=== PATIENT | female | born 1955 | race Caucasian/White ===

== ENCOUNTER → 2016-10-03 | Outpatient (CLI) | payer OTHER ==
--- NOTE | 2016-10-03 11:18 | DX ---
Abdomen Single View 10:13 a.m. Indication: Abdominal and flank pain. Comparison: None. Findings: Bowel pattern within normal limit. Stool within the colon partially obscures the kidneys. N o definite calculi overlying the kidneys or course of the ureters. Several round phleboliths are scat tered throughout the pelvis. 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 Impression: 1. No definite nephrolithiasis or ureteral calculi. 2. Mild constipation.
== END ==
LOC: BMCIMAGING 10:10
PROVIDERS: ATTEND Internal Medicine
DX: M54.5 Low back pain (principal); K59.00 Constipation, unspecified

== ENCOUNTER → 2016-10-10 | Outpatient (CLI) | payer OTHER | LOC: FIMAGING 07:26 | DX: Z12.31 Encounter for screening mammogram for malignant neoplasm of breast (principal) | CPT/HCPCS: G0202 ==

== ENCOUNTER → 2016-10-11 | Outpatient (CLI) | payer OTHER | LOC: BRMIMAGING 14:00 | PROVIDERS: ATTEND Internal Medicine | DX: R10.2 Pelvic and perineal pain (principal) | CPT/HCPCS: 76856-PO ==

== ENCOUNTER 2016-10-18 16:03 | Emergency (ER) | payer OTHER ==
[2016-10-18] MEDS ORDERED: NS 1,000 ML IV ONE (16:27)
--- NOTE | 2016-10-18 16:31 | CPEKG ---
Heart Rate: 77 RR Interval: 779 P-R Interval: 156 QRSD Interval: 74 QT Interval: 416 QTC Interval: 471 P [place]: 259 QRS [place]: 50 T Wave [place]: 14 EKG Severity - BORDERLINE ECG - EKG Impression: ECTOPIC ATRIAL RHYTHM Electronically Signed By: Pramod Cabrera 18-Oct-2016 23:45:26
[2016-10-18 16:32] LABS: % IMMATURE GRANULYOCYTES 0.3 % (0.0-1.1); ABSOLUTE IMMATURE GRANULOCYTES 0.03 10^3/uL (0.00-0.10); ADD DIFF? NO; ADD MORPH? NO; ADD SCAN? NO; ATYPICAL LYMPHOCYTE FLAG 0 (0-99); FRAGMENT RBC FLAG 0 (0-99); HEMATOCRIT 42.2 % (38.0-47.0); HEMOGLOBIN 14.2 g/dL (12.6-16.3); LEFT SHIFT FLG 0 (0-99); LIPEMIA HEMOLYSIS FLAG 80 (0-99); MEAN CELL HEMOGLOBIN 27.5 pg (27.9-34.1); MEAN CELL HEMOGLOBIN CONCENTR. 33.6 g/dL (32.4-36.7); MEAN CELL VOLUME 81.6 fL (81.5-99.8); MEAN PLATELET VOLUME 9.8 fL (8.7-11.7); PLATELET CLUMPS FLAG 0 (0-99); PLATELET COUNT 302 10^3/uL (150-400); RED BLOOD CELL COUNT 5.17 10^6/uL (4.18-5.33); RED CELL DISTRIBUTION WIDTH 13.5 % (11.5-15.2)
--- NOTE | 2016-10-18 16:42 | EDPHY ---
H & P Stated Complaint: bilat UQ abd pain Time Seen by Provider: 10/18/16 16:13 HPI/ROS: Chief complaint: Abdominal pain HPI: 7-year-old female presenting complaining of severe abdominal pain that started about an hour ago. Patient states she is currently being worked up evaluate for constipation. Patient states she has had constipation for the last month and had a last bowel movement was the 29 of September. This all started after she was diagnosed with a possible UTI and was taking antibiotics. Patient states she was seen by her primary care doc in October 09 was started on Colace into clocks daily. Patient called GI last week and was scheduled for a colonoscopy tomorrow. Yesterday she took 2 doses of MiraLax and drank a bottle of Mag citrate last night. She had 1 small loose stool last night and had 1 small loose stool this morning. She took 2 do clocks about 2 hours ago with a small glass of water. Shortly thereafter she developed this severe abdominal pain to a 10/10. Pain is now subsided to a 4/10. Diffuse in her abdomen. Has had some nausea no vomiting. No fevers or chills. Does not have a history of constipation in the past. States that she does not drink fluids very often or nearly as much as she should. ROS: 10 point Review of Systems is negative except as noted in the HPI. Past medical history: Vera's esophagus Surgical history: Appendectomy years ago Medications: None new Allergies: No known drug allergies Physical exam: Gen: Awake, Alert, No Distress HEENT: Nose: no rhinorrhea Eyes: PERRLA, EOMI Mouth: Moist mucosa Neck: Supple, no JVD Chest: nontender, lungs clear to auscultation Heart: S1, S2 normal, no murmur Abd: Soft, diffuse tenderness lower greater than upper with some mild distention in the lower abdomen, mild voluntary guarding Back: no CVA tenderness, no midline tenderness Ext: no edema, non-tender Skin: no rash Neuro: CN II-XII intact, Sensation grossly intact, Strength 5/5 in bilateral upper and lower extremities - Personal History Current Tetanus Diphtheria and Acellular Pertussis (TDAP): No - Medical/Surgical History Hx Asthma: No Hx Chronic Respiratory Disease: No Hx Diabetes: No Hx Cardiac Disease: No Hx Renal Disease: No Hx Cirrhosis: No Hx Alcoholism: No Hx HIV/AIDS: No Hx Splenectomy or Spleen Trauma: No Other PMH: vera's esophagus - Social History Smoking Status: Never smoked Constitutional: Initial Vital Signs Temperature (C) 36.4 C 10/18/16 16:09 Heart Rate 76 10/18/16 16:09 Respiratory Rate 20 10/18/16 16:09 Blood Pressure 146/88 H 10/18/16 16:09 O2 Sat (%) 100 10/18/16 16:09 O2 Delivery Mode Room Air Allergies/Adverse Reactions: No Known Allergies Allergy (Unverified 10/18/16 16:08) Home Medications: Medication Instructions Recorded Magnesium Citrate 10/18/16 Polyethylene Glycol 3350 [Miralax 10/18/16 17 gm (*)] Medical Decision Making - Diagnostics Imaging: CT scan abdomen pelvis interpreted by Dr. Soliz: No bowel obstruction. There is fluid in the small bowel and colon consistent with a bowel prep. There is no stool. There is no obstruction. There is some questionable abnormality in the colon which he is recommending follow up with a colonoscopy. ED Course/Re-evaluation: 7-year-old female presenting with abdominal pain after beginning a bowel prep a for constipation in reporting that she has not had a bowel movement since the 3rd of this month. CT scan shows fluid-filled bowel and no stool and no evidence of obstruction. Findings are consistent with her bowel prep. I discussed at length with her. There is some possible abnormality in the knee: Which is nonspecific. Follow up is recommended for colonoscopy. Plan will be to discharge the patient home to have her complete her bowel prep and follow-up for colonoscopy tomorrow as scheduled. - Data Points Laboratory Results: Laboratory Results 10/18/16 16:07 10/18/16 16:07 10/18/16 10/18/16 16:07 16:07 WBC 8.68 10^3/uL 10^3/uL (3.80-9.50) RBC 5.17 10^6/uL 10^6/uL (4.18-5.33) Hgb 14.2 g/dL g/dL (12.6-16.3) Hct 42.2 % % (38.0-47.0) MCV 81.6 fL fL (81.5-99.8) MCH 27.5 pg L pg (27.9-34.1) MCHC 33.6 g/dL g/dL (32.4-36.7) RDW 13.5 % % (11.5-15.2) Plt Count 302 10^3/uL 10^3/uL (150-400) MPV 9.8 fL fL (8.7-11.7) Neut % (Auto) 57.1 % % (39.3-74.2) Lymph % (Auto) 33.6 % % (15.0-45.0) [place] % (Auto) 7.3 % % (4.5-13.0) Eos % (Auto) 1.0 % % (0.6-7.6) Baso % (Auto) 0.7 % % (0.3-1.7) Nucleat RBC Rel Count 0.0 % % (0.0-0.2) Absolute Neuts (auto) 4.95 10^3/uL 10^3/uL (1.70-6.50) Absolute Lymphs (auto) 2.92 10^3/uL 10^3/uL (1.00-3.00) Absolute Monos (auto) 0.63 10^3/uL 10^3/uL (0.30-0.80) Absolute Eos (auto) 0.09 10^3/uL 10^3/uL (0.03-0.40) Absolute Basos (auto) 0.06 10^3/uL 10^3/uL (0.02-0.10) Absolute Nucleated RBC 0.00 10^3/uL 10^3/uL (0-0.01) Immature Gran % 0.3 % % (0.0-1.1) Immature Gran # 0.03 10^3/uL 10^3/uL (0.00-0.10) Sodium 137 mEq/L mEq/L (134-144) Potassium 3.7 mEq/L mEq/L (3.5-5.2) Chloride 103 mEq/L mEq/L (97-110) Carbon Dioxide 22 mEq/l mEq/l (22-31) Anion Gap 12 mEq/L mEq/L (8-16) BUN 19 mg/dL mg/dL (7-23) Creatinine 0.9 mg/dL mg/dL (0.6-1.0) Estimated GFR > 60 Glucose 108 mg/dL H mg/dL (70-100) Calcium 10.0 mg/dL mg/dL (8.5-10.4) Total Bilirubin 0.7 mg/dL mg/dL (0.1-1.4) Conjugated Bilirubin 0.3 mg/dL mg/dL (0.0-0.5) Unconjugated Bilirubin 0.4 mg/dL mg/dL (0.0-1.1) AST 30 IU/L IU/L (14-46) ALT 35 IU/L IU/L (9-52) Alkaline Phosphatase 70 IU/L IU/L (38-126) Total Protein 7.7 g/dL g/dL (6.3-8.2) Albumin 4.9 g/dL g/dL (3.5-5.0) Lipase 170.0 IU/L IU/L (23-300) Medications Given: Discontinued Medications Sodium Chloride (Ns) 1,000 mls @ 0 mls/hr IV ONCE ONE PRN Reason: Wide Open Stop: 10/18/16 16:28 Last Admin: 10/18/16 16:37 Dose: 1,000 mls Ondansetron HCl (Zofran) 4 mg IVP EDNOW ONE Stop: 10/18/16 18:07 Last Admin: 10/18/16 18:10 Dose: 4 mg Departure - Departure Disposition: Home, Routine, Self-Care Clinical Impression: Abdominal pain Condition: Good Instructions: Acute Abdominal Pain (ED) Additional Instructions: Follow up with Gastroenterology as scheduled tomorrow for a colonoscopy. Please complete your bowel prep this evening. Referrals: Jeff Palm MD [Primary Care Provider] - As per Instructions
[2016-10-18 16:59] LABS: ALANINE AMINOTRANSFERASE 35 IU/L (9-52); ALBUMIN 4.9 g/dL (3.5-5.0); ALKALINE PHOSPHATASE 70 IU/L (38-126); ANION GAP 12 mEq/L (8-16); ASPARTATE AMINOTRANSFERASE 30 IU/L (14-46); BILIRUBIN,TOTAL 0.7 mg/dL (0.1-1.4); BILIRUBIN-CONJUGATED 0.3 mg/dL (0.0-0.5); BILIRUBIN-UNCONJUGATED 0.4 mg/dL (0.0-1.1); CARBON DIOXIDE 22 mEq/l (22-31); CHLORIDE 103 mEq/L (97-110); CREATININE 0.9 mg/dL (0.6-1.0); GLOMERULAR FILTRATION RATE > 60; GLUCOSE 108 mg/dL (70-100); POTASSIUM 3.7 mEq/L (3.5-5.2); SODIUM 137 mEq/L (134-144); TOTAL PROTEIN 7.7 g/dL (6.3-8.2)
[2016-10-18] MEDS ORDERED: IOPAMIDOL (ISOVUE-300) 100 ML BTL IV ONE (17:36)
[2016-10-18] MEDS ORDERED: ONDANSETRON 4 MG/2 ML VIAL ONE (17:45)
[2016-10-18] MEDS ORDERED: ONDANSETRON 4 MG/2 ML VIAL IVP ONE (18:06)
[2016-10-18 19:04] VITALS: BP 164/104; PULSE 93; RESP 18; TEMP 97.7; O2SAT 96
== END 2016-10-18 19:04 | disposition home or self-care (01) ==
LOC: EDUNIT#
DX: R10.9 Unspecified abdominal pain (principal); Z90.49 Acquired absence of other specified parts of digestive tract
CPT/HCPCS: 96374; J2405; Q9967